=== PATIENT | female | born 1975 | race Caucasian/White ===

== ENCOUNTER 2016-05-04 05:39 | Emergency (ER) | payer OTHER | END 2016-05-04 07:22 | disposition home or self-care (01) | LOC: ER 05:39 | DX: R07.2 Precordial pain (principal); I10 Essential (primary) hypertension; N83.209 Unspecified ovarian cyst, unspecified side; F17.210 Nicotine dependence, cigarettes, uncomplicated; Z90.81 Acquired absence of spleen; Z79.899 Other long term (current) drug therapy | CPT/HCPCS: 36415 ==

== ENCOUNTER 2016-06-26 03:27 | Emergency (ER) | payer OTHER | END 2016-06-26 08:05 | disposition short-term general hospital (02) | LOC: ER 03:27 | DX: K91.840 Postprocedural hemorrhage of a digestive system organ or structure following a digestive system procedure (principal); R10.31 Right lower quadrant pain; I10 Essential (primary) hypertension; R11.0 Nausea; F17.210 Nicotine dependence, cigarettes, uncomplicated; Z90.49 Acquired absence of other specified parts of digestive tract | CPT/HCPCS: 36415; 96361; 96374; 96375; 96376; Q9963; Q9967 ==

== ENCOUNTER 2016-07-04 00:50 | Emergency (ER) | payer OTHER | END 2016-07-04 08:05 | disposition home or self-care (01) | LOC: ER 00:50 | DX: G89.18 Other acute postprocedural pain (principal); R10.30 Lower abdominal pain, unspecified; R11.0 Nausea | CPT/HCPCS: 36415; 96361; 96374 ==